=== PATIENT | male | born 1945 | race Caucasian/White ===

== ENCOUNTER → 2016-07-11 | Outpatient (CLI) | payer OTHER ==
[2016-07-11 12:39] LABS: CALCIUM 9.7 mg/dL (8.7-10.7); MAGNESIUM 1.9 mg/dL (1.6-2.4); POTASSIUM 4.4 meq/L (3.8-5.2)
== END ==
LOC: LAB 11:52
PROVIDERS: ATTEND Family Medicine
DX: M81.0 Age-related osteoporosis without current pathological fracture (principal); F17.210 Nicotine dependence, cigarettes, uncomplicated
CPT/HCPCS: 36415; 80048; 83735; 84100